=== PATIENT | male | born 1965 | race Hispanic/Latino ===

== ENCOUNTER 2023-01-04 16:18 | Emergency (ER) | payer OTHER ==
[~2023-01-04] VITALS: Ht 180.3 cm; Wt 99.8 kg
[2023-01-04 20:41] VITALS: BP 123/61
== END 2023-01-04 20:37 | disposition home or self-care (01) ==
LOC: EDH 16:18
DX: R07.81 Pleurodynia (principal); M25.561 Pain in right knee
CPT/HCPCS: 71111; 73562; 93005